=== PATIENT | female | born 1950 | race Caucasian/White ===

== ENCOUNTER 2017-11-09 05:37 | Inpatient (IN) | payer OTHER, MEDICARE ==
[2017-11-03 14:51] VITALS: BP 132/84
[~2017-11-09] VITALS: Ht 160 cm; Wt 86.0 kg
[~2017-11-09 05:37] MED LIST: AMLO2.5T PO; CELE200C PO; CYAN25009 PO; FIBER PO; LACT1CAP37 PO; TRAM50TA2 PO; TRIA1TAB3 PO; UBID100C19 PO
[2017-11-09] MEDS ORDERED: LACTATED RINGERS 1,000 ML IV SCH (06:03)
[2017-11-09] MEDS ORDERED: KETOROLAC 60 MG/2 ML ONE (06:29)
[2017-11-09] MEDS ORDERED: TRANEXAMIC ACID 100 MG/ML, 10ML ONE (06:29)
[2017-11-09] MEDS ORDERED: SODIUM CHLORIDE 0.9% 100 ML ONE (06:30)
[2017-11-09] MEDS ORDERED: ROPIvacaine/PF 0.2%, 20 ML ONE ×2 (06:30→07:30)
[2017-11-09] MEDS ORDERED: VANCOMYCIN 1,000 MG ONE (06:30)
[2017-11-09] MEDS ORDERED: LIDOCAINE-MPF 1%, 2ML INFIL ONE (06:30)
[2017-11-09] MEDS ORDERED: EPINEPHRINE 1 MG/ML, 1ML ONE (06:30)
[2017-11-09] MEDS ORDERED: LORazepam 2 MG/ML, 1ML ONE (07:19)
[2017-11-09] MEDS ORDERED: ONDANSETRON 2MG/ML, 2ML ONE (07:30)
[2017-11-09] MEDS ORDERED: CEFAZOLIN 1,000 MG ONE (07:30)
[2017-11-09] MEDS ORDERED: MIDAZOLAM 1 MG/ML, 2ML ONE (07:30)
[2017-11-09] MEDS ORDERED: LORazepam 2 MG/ML, 1ML IVPush ONE (07:30)
[2017-11-09] MEDS ORDERED: GABAPENTIN 300 MG CAPSULE PO ONE (07:30)
[2017-11-09] MEDS ORDERED: PROPOFOL 10 MG/ML, 20ML ONE (07:30)
[2017-11-09] MEDS ORDERED: OXYcodone IR 5MG TABLET PO ONE (07:30)
[2017-11-09] MEDS ORDERED: DEXAMETHASONE 4 MG/ML, 5ML ONE (07:30)
[2017-11-09] MEDS ORDERED: ACETAMINOPHEN 500 MG TABLET PO ONE (07:30)
[2017-11-09] MEDS ORDERED: METOCLOPRAMIDE 5 MG/ML, 2ML IVPush ONE (07:30)
[2017-11-09] MEDS ORDERED: FENTANYL PF 250 MCG/5ML ONE (07:30)
[2017-11-09] MEDS ORDERED: PROMETHAZINE 12.5 MG SUPP PR PRN (09:30)
[2017-11-09] MEDS ORDERED: DIAZEPAM 5 MG TABLET PO PRN (09:30)
[2017-11-09] MEDS ORDERED: MAGNESIUM HYDROXIDE 8%, 30ML UDC PO PRN (09:30)
[2017-11-09] MEDS: KETOROLAC 30 MG/1 ML IV SCH ×3 (09:30→21:30)
[2017-11-09] MEDS ORDERED: DIPHENHYDRAMINE 50 MG CAPSULE PO PRN (09:30)
[2017-11-09] MEDS ORDERED: ONDANSETRON 2MG/ML, 2ML IV PRN (09:30)
[2017-11-09] MEDS: OXYcodone IR 5MG TABLET PO SCH ×4 (09:30→23:42)
[2017-11-09] MEDS ORDERED: HYDROmorphone 1 MG/ML, 1ML IV PRN ×2 (09:30)
[2017-11-09] MEDS ORDERED: MEPERIDINE/PF 25MG/0.5ML IVPush PRN (09:30)
[2017-11-09] MEDS ORDERED: PROMETHAZINE 25 MG/ML, 1ML IM PRN (09:30)
[2017-11-09] MEDS ORDERED: ACETAMINOPHEN 650 MG/20.3 ML UDC PO SCH (09:30)
[2017-11-09] MEDS ORDERED: ZOLPIDEM 5MG TABLET PO PRN (09:30)
[2017-11-09] MEDS ORDERED: OXYcodone IR 5MG TABLET PO PRN (09:30)
[2017-11-09] MEDS ORDERED: OXYcodone 5 MG/5 ML ORAL.SOL UDC PO PRN (09:30)
[2017-11-09] MEDS ORDERED: FENTANYL PF 100 MCG/2ML IV PRN (09:30)
[2017-11-09] MEDS ORDERED: MEPERIDINE/PF 25MG/0.5ML ONE (09:30)
[2017-11-09] MEDS ORDERED: ONDANSETRON 4 MG TABLET PO PRN (09:30)
[2017-11-09] MEDS ORDERED: SENNA/DOCUSATE TABLET PO PRN (09:30)
[2017-11-09] MEDS ORDERED: BISACODYL 10 MG SUPP PR PRN (09:30)
[2017-11-09] MEDS ORDERED: ALUMINUM/MAG/SIMETHICONE 30 ML UDC PO PRN (09:30)
[2017-11-09] MEDS ORDERED: ONDANSETRON 2MG/ML, 2ML IVPush PRN (09:30)
[2017-11-09] MEDS ORDERED: LABETALOL 5MG/ML, 20ML IV PRN (09:30)
[2017-11-09] MEDS ORDERED: TRANEXAMIC ACID 1,000 MG in SODIUM CHLORIDE 0.9% 100 ML IVPB ONE (09:45)
[2017-11-09 12:00] VITALS: BP 121/79
[2017-11-09] MEDS ORDERED: HYDROmorphone 2 MG/ML, 1ML ONE (12:07)
[2017-11-09] MEDS: D5%-0.45% NACL 1,000 ML IV SCH ×3 (12:40→22:43)
[2017-11-09] MEDS: ASPIRIN 81 MG TABLET EC PO SCH (16:42)
[2017-11-09] MEDS: CEFAZOLIN PMX 2GM/50ML 50 ML IVPB SCH (16:42)
[2017-11-09] MEDS ORDERED: ACETAMINOPHEN 500 MG TABLET ONE (16:49)
[2017-11-09] MEDS: ACETAMINOPHEN 500 MG TABLET PO SCH ×2 (16:58→23:42)
[2017-11-09 20:35] VITALS: BP 125/69
[2017-11-09] MEDS: DOCUSATE 100 MG CAPSULE PO SCH ×2 (21:00→23:42)
[2017-11-10] MEDS: CEFAZOLIN PMX 2GM/50ML 50 ML IVPB SCH (00:06)
[2017-11-10 00:34] VITALS: BP 120/69
[2017-11-10] MEDS: KETOROLAC 30 MG/1 ML IV SCH ×3 (03:30→16:18)
[2017-11-10] MEDS: D5%-0.45% NACL 1,000 ML IV SCH ×3 (03:36→19:01)
[2017-11-10] MEDS: ACETAMINOPHEN 500 MG TABLET PO SCH ×3 (04:15→18:12)
[2017-11-10] MEDS: ASPIRIN 81 MG TABLET EC PO SCH ×2 (04:15→18:11)
[2017-11-10] MEDS: OXYcodone IR 5MG TABLET PO SCH ×5 (04:15→20:38)
[2017-11-10 04:26] VITALS: BP 126/76
[2017-11-10] MEDS ORDERED: DEXAMETHASONE 4 MG/ML, 1ML IVPush SCH (06:00)
[2017-11-10 07:56] VITALS: BP 125/67
[2017-11-10] MEDS: AMLODIPINE 2.5 MG TABLET PO SCH (08:07)
[2017-11-10] MEDS: MULTIVITAMINS/MINERALS TABLET PO SCH (08:07)
[2017-11-10] MEDS: DOCUSATE 100 MG CAPSULE PO SCH ×2 (08:08→20:37)
[2017-11-10] MEDS: TRIAMTERENE-HCTZ 37.5/25 MG TABLET PO SCH (08:14)
[2017-11-10] MEDS: TAMSULOSIN 0.4 MG CAP.ER.24H PO SCH (09:52)
[2017-11-10] MEDS ORDERED: OXYcodone 5 MG/5 ML ORAL.SOL UDC ONE (12:09)
[2017-11-10 15:30] VITALS: BP 106/66
[2017-11-10 19:39] VITALS: BP 107/57
[2017-11-11] MEDS: OXYcodone IR 5MG TABLET PO SCH ×4 (00:22→13:04)
[2017-11-11] MEDS: ACETAMINOPHEN 500 MG TABLET PO SCH ×3 (00:22→11:40)
[2017-11-11 02:11] VITALS: BP 129/75
[2017-11-11] MEDS: ASPIRIN 81 MG TABLET EC PO SCH (04:23)
[2017-11-11 07:14] VITALS: BP 113/62
[2017-11-11] MEDS: TRIAMTERENE-HCTZ 37.5/25 MG TABLET PO SCH (08:38)
[2017-11-11] MEDS: DOCUSATE 100 MG CAPSULE PO SCH (08:38)
[2017-11-11] MEDS: MULTIVITAMINS/MINERALS TABLET PO SCH (08:39)
[2017-11-11] MEDS: AMLODIPINE 2.5 MG TABLET PO SCH (08:39)
[2017-11-11] MEDS: TAMSULOSIN 0.4 MG CAP.ER.24H PO SCH (08:40)
[2017-11-11] MEDS: D5%-0.45% NACL 1,000 ML IV SCH (12:00)
[2017-11-11 12:16] VITALS: BP 112/55
[2017-11-11] MEDS ORDERED: OXYC5CAP2 PO (15:09)
== END 2017-11-11 15:17 | disposition home or self-care (01) | DRG 470 ==
LOC: OUT 05:37 → ORIP 09:11 → 4NOR 10:48 → DCLOUNGE 11-11 15:08
PROVIDERS: ADMIT Orthopaedic Surgery; ATTEND Orthopaedic Surgery
PROC: 0SRC0J9 Replacement of Right Knee Joint with Synthetic Substitute, Cemented, Open Approach (ICD-10-PCS; principal; 2017-11-09 07:30)
DX: M17.31 Unilateral post-traumatic osteoarthritis, right knee (principal); I10 Essential (primary) hypertension; Z88.6 Allergy status to analgesic agent; S83.005A Unspecified dislocation of left patella, initial encounter; X58.XXXA Exposure to other specified factors, initial encounter; Y92.230 Patient room in hospital as the place of occurrence of the external cause
CPT/HCPCS: 36415; 85014; 85018; C1713; J0171; J0690; J1100; J1170; J1885; J2175; J2250; J2405; J2704; J2795; J3010; J3370; C1776; J2060; J2765; J7120